=== PATIENT | female | born 1935 | race Caucasian/White ===

== ENCOUNTER → 2016-10-31 11:29 | Outpatient (CLI) | payer MEDICARE, BC ==
[2015-03-09 06:02] VITALS: BMI 32.8
[~2016-10-31 11:29] MED LIST: COLACE100 MG PO; COREG 3.1253.125 MG PO; DIOVAN160 MG PO; FERROUS SULFAT140 MG PO; LAVAZA PO; LIPITOR40 MG PO; LOW DOSE ASPIRI81 M1 PO; NEXIUM40 MG PO; NUCYNTA50 MG PO; PERPHENAZINE2 MG PO; PREMARIN45 GM VG; SYNTHROID50 MCG PO; TOVIAZ4 MG PO; VITAMIN B-12500 MC1 PO; VITAMIN D31000 UNI2 PO; VOLTAREN100 GM TOPICAL
[2016-11-03 03:06] LABS: OVA + PARASITE EXAM Final report (())
== END | disposition home or self-care (01) ==
LOC: D.LAB 11:29
PROVIDERS: Family Medicine
DX: R19.7 Diarrhea, unspecified (principal)

== ENCOUNTER → 2018-01-29 08:48 | Outpatient (CLI) | payer MEDICARE, BC ==
[2015-03-09 06:02] VITALS: BMI 32.8
== END | disposition home or self-care (01) ==
LOC: D.RAD 08:48
DX: K21.9 Gastro-esophageal reflux disease without esophagitis (principal)

== ENCOUNTER → 2020-03-20 11:26 | Outpatient (CLI) | payer MEDICARE, BC ==
[2015-03-09 06:02] VITALS: BMI 32.8
== END | disposition home or self-care (01) ==
LOC: D.NM 11:26
PROVIDERS: ATTEND Internal Medicine Gastroenterology
DX: R12 Heartburn (principal); R11.2 Nausea with vomiting, unspecified; R10.13 Epigastric pain

== ENCOUNTER → 2020-03-27 11:13 | Outpatient (CLI) | payer MEDICARE, BC ==
[2015-03-09 06:02] VITALS: BMI 32.8
== END | disposition home or self-care (01) ==
LOC: D.RAD 11:00
PROVIDERS: ATTEND Internal Medicine Gastroenterology
DX: R12 Heartburn (principal); R11.2 Nausea with vomiting, unspecified; R10.13 Epigastric pain